=== PATIENT | female | born 2000 | race Caucasian/White ===

== ENCOUNTER 2023-08-17 20:23 | Observation (INO) | payer BC, SELFPAY ==
[2023-08-17 21:38] VITALS: BP 128/76; BMI 29.8
== END 2023-08-17 21:45 | disposition home or self-care (01) ==
LOC: LDRP 20:23
PROVIDERS: ADMITTING PHYSICIAN Obstetrics & Gynecology
DX: R10.9 Unspecified abdominal pain (principal); O99.343 Other mental disorders complicating pregnancy, third trimester; F32.A Depression, unspecified; Z3A.37 37 weeks gestation of pregnancy; F41.9 Anxiety disorder, unspecified; G43.909 Migraine, unspecified, not intractable, without status migrainosus; O99.333 Smoking (tobacco) complicating pregnancy, third trimester; F17.210 Nicotine dependence, cigarettes, uncomplicated
CPT/HCPCS: 36415; 86850; 86900; 86901; G0378

== ENCOUNTER 2023-08-26 14:41 | Observation (INO) | payer BC, SELFPAY ==
[2023-08-26 15:10] LABS: % Basophils 0.2 % (0-2); % Eosinophils 0.6 % (0-6); % Immature Granulocytes 1.4 % (0-0.5); % Lymphocytes 16.3 % (20.5-51.1); % Monocytes 8.5 % (1.7-9.3); Absolute Eosinophils 0.1 10^3/uL (0-0.7); Absolute Immature Granulocytes 0.1 10^3/uL (0-0.05); Absolute Lymphocytes 1.5 10^3/uL (1.2-3.4); Absolute Monocytes 0.8 10^3/uL (0.1-0.6); Absolute Neutrophils 6.6 10^3/uL (1.4-6.5); Hematocrit 33.8 % (37.0-47.0); Hemoglobin 11.2 g/dL (12.0-16.0); Mean Corp Hgb Conc. 33.1 g/dL (33.0-37.0); Mean Corpuscular Hgb 27.4 pg (27.0-31.0); Mean Corpuscular Volume 82.6 fL (81.0-99.0); Mean Platelet Volume 8.9 fL (7.4-10.4); Nucleated Red Blood Cells % 0 %; Platelet Count 314 10^3/uL (130-400); Red Blood Cell Count 4.09 10^6/uL (4.20-5.40); Red Cell Dist. Width 13.2 % (11.5-14.5)
[2023-08-26 15:21] VITALS: BP 117/87; BMI 30.8
[2023-08-26 15:21] LABS: INR 0.99; PT 13.1 Sec (11.4-14.6)
[2023-08-26 15:22] LABS: APTT 24.9 Sec (23.4-35.0)
[2023-08-26 15:23] LABS: Urine Albumin Negative (Neg - Trace); Urine Bilirubin Negative (Negative); Urine Character Slightly Cloudy (Clear); Urine Color Yellow; Urine Glucose Negative (Negative); Urine Ketone Negative (Negative); Urine Leukocyte 2+ (Negative); Urine Nitrite Negative (Negative); Urine Occult Blood Negative (Negative); Urine Specific Gravity 1.015 (<1.030); Urine Urobilinogen Negative (Neg - 1+)
[2023-08-26 15:26] LABS: ALT (SGPT) < 10 U/L (0-35); AST (SGOT) 21 U/L (14-36); Albumin 3.9 g/dl (3.5-5.0); Alkaline Phosphatase 136 U/L (38-126); Blood Urea Nitrogen 8 mg/dl (7-17); Calcium 9.5 mg/dl (8.4-10.2); Carbon Dioxide 20 mmol/L (22-30); Chloride 106 mmol/L (98-107); Glucose 118 mg/dl (70-99); Potassium 4.3 mmol/L (3.5-5.1); Sodium 131 mmol/L (135-145); Total Bilirubin 0.5 mg/dl (0.2-1.3); Uric Acid 4.1 mg/dl (2.5-6.2); eGFR > 60.00
[2023-08-26 15:34] LABS: Urine Squamous Cell >30 /LPF (Few)
[2023-08-26 15:36] LABS: Urine Bacteria Many (Negative); Urine Red Blood Cell None Seen /HPF (0-2)
[2023-08-26 15:59] LABS: Protein/creatinine Ratio 0.1; Urine Protein 10 mg/dl
== END 2023-08-26 16:38 | disposition home or self-care (01) ==
LOC: LDRP 14:41
PROVIDERS: Obstetrics & Gynecology; ADMITTING PHYSICIAN Obstetrics & Gynecology
DX: O14.03 Mild to moderate pre-eclampsia, third trimester (principal); Z3A.38 38 weeks gestation of pregnancy; O99.343 Other mental disorders complicating pregnancy, third trimester; F41.9 Anxiety disorder, unspecified; F32.A Depression, unspecified; R10.9 Unspecified abdominal pain
CPT/HCPCS: 80053; 81003; 81015; 82570; 84156; 84550; 85025; 85610; 85730; 86850; 86900; 86901; G0378

== ENCOUNTER 2023-08-31 08:15 | Inpatient (IN) | payer BC, SELFPAY ==
[2023-08-31 08:27] VITALS: BP 137/73; BMI 31.0
[2023-08-31 10:22] LABS: % Basophils 0.4 % (0-2); % Eosinophils 0.5 % (0-6); % Immature Granulocytes 1.6 % (0-0.5); % Lymphocytes 15.7 % (20.5-51.1); % Neutrophils 70.8 % (42.2-75.2); Absolute Immature Granulocytes 0.1 10^3/uL (0-0.05); Absolute Lymphocytes 1.3 10^3/uL (1.2-3.4); Absolute Monocytes 0.9 10^3/uL (0.1-0.6); Absolute Neutrophils 5.8 10^3/uL (1.4-6.5); Hematocrit 31.9 % (37.0-47.0); Hemoglobin 10.5 g/dL (12.0-16.0); Mean Corp Hgb Conc. 32.9 g/dL (33.0-37.0); Mean Corpuscular Hgb 26.9 pg (27.0-31.0); Mean Corpuscular Volume 81.8 fL (81.0-99.0); Mean Platelet Volume 9.4 fL (7.4-10.4); Nucleated Red Blood Cells % 0 %; Platelet Count 306 10^3/uL (130-400); Red Cell Dist. Width 13.6 % (11.5-14.5); White Blood Cell Count 8.2 10^3/uL (4.8-10.8)
[2023-08-31] MEDS: LR 1000 IV ×2 (11:58→19:34)
[2023-08-31] MEDS: PITOCIN 30 UNITS/NSS 500 ML IV ×2 (11:58→23:08)
[2023-08-31 12:15] LABS: Amphetamines Negative (Negative); Barbiturates Negative (Negative); Benzodiazepines Negative (Negative); Buprenorphine Negative (Negative); Cocaine Negative (Negative); Marijuana Negative (Negative); Methadone Negative (Negative); Methamphetamines Negative (Negative); Opiates Negative (Negative); Phencyclidine Negative (Negative); Tricyclic Antidepressants Negative (Negative)
[2023-08-31 12:57] LABS: ALT (SGPT) < 10 U/L (0-35); AST (SGOT) 22 U/L (14-36); Albumin 3.9 g/dl (3.5-5.0); Alkaline Phosphatase 137 U/L (38-126); Blood Urea Nitrogen 7 mg/dl (7-17); Calcium 9.4 mg/dl (8.4-10.2); Carbon Dioxide 19 mmol/L (22-30); Chloride 104 mmol/L (98-107); Estimated Creatinine Clearance > 125 ml/min; Glucose 73 mg/dl (70-99); Sodium 133 mmol/L (135-145); Total Bilirubin 0.7 mg/dl (0.2-1.3); Total Protein 6.9 g/dl (6.3-8.2); eGFR > 60.00
[2023-08-31] MEDS: MORPHINE SULFATE 2 MG IV ×2 (16:54→18:17)
[2023-08-31] MEDS: SUBLIMAZE 100 MCG EPIDURAL (19:01)
[2023-08-31] MEDS: FENTANYL/BUPIVACAINE 100 EPIDURAL (19:01)
[2023-08-31] MEDS: TYLENOL 1000 MG PO (21:03)
[2023-09-01] MEDS: NICODERM TRANSDERMAL 14 MG TRANSDERM (01:21)
[2023-09-01 06:23] LABS: Hematocrit 28.9 % (37.0-47.0); Hemoglobin 9.4 g/dL (12.0-16.0)
[2023-09-01] MEDS: PRENATAL PLUS 1 TABLET PO (07:31)
[2023-09-01] MEDS: TYLENOL 650 MG PO ×3 (07:31→20:50)
[2023-09-01] MEDS: MOTRIN 600 MG PO ×2 (07:32→14:52)
--- NOTE | 2023-09-01 14:30 | CM ---
CM received consult for assessing emotional and physical needs prior to discharge. CM spoke with mom's nurse, per nurse, mom's significant other was incarcerated recently, mother has a past history of substance use, tox screen negative. Nurse
reports mom is current in outpatient therapy. Nurse reports mom has been appropriate with baby, father has been to visit. CM met with mom and father in bedside, congratulated on of child. Mother reports this is her first child, is open to any
resources. Mom reports she has already set up WIC and is involved in [facility] in [place] which provides counseling, educational classes, ultrasounds and other care. Mom agreeable to referral to [facility], faxed to
[phone]. Mom inquiring about CHIP program, CM will gather information to provide to mom. Mom reports she is feeling sore but otherwise doing well. Mom reports she has everything they need at home for the baby. CM will continue to follow for
discharge planning needs.
Plan; home with baby when stable.
[2023-09-01 14:34] LABS: Syphilis/T. pallidum Ab Reflex Negative (Negative)
[2023-09-01] MEDS: SENOKOT-S 1 TABLET PO (20:49)
[2023-09-01] MEDS: MOTRIN 800 MG PO (20:50)
[2023-09-02] MEDS: TYLENOL 650 MG PO ×2 (05:40→11:59)
[2023-09-02] MEDS: MOTRIN 800 MG PO ×2 (05:40→14:41)
[2023-09-02] MEDS: NICODERM TRANSDERMAL 14 MG TRANSDERM (05:40)
[2023-09-02] MEDS: PRENATAL PLUS 1 TABLET PO (08:48)
[2023-09-02] MEDS: FEOSOL 325 MG PO (08:48)
--- NOTE | 2023-09-02 10:45 | CM ---
Spoke with Mom and SO at bedside
Mom reports she will have support at home - baby's dad and paternal grandmother
Given information on CHIP program. Instructed to call her insurance to see if infant can be added on to moms' insurance
== END 2023-09-02 16:01 | disposition home or self-care (01) | DRG 807 ==
LOC: LDRP 08:15
PROVIDERS: ADMITTING PHYSICIAN Obstetrics & Gynecology; FAMILY PHYSICIAN Obstetrics & Gynecology
PROC: 10E0XZZ Delivery of Products of Conception, External Approach (ICD-10-PCS; 2023-08-31)
PROC: 3E033VJ Introduction of Other Hormone into Peripheral Vein, Percutaneous Approach (ICD-10-PCS; 2023-08-31)
PROC: 10907ZC Drainage of Amniotic Fluid, Therapeutic from Products of Conception, Via Natural or Artificial Opening (ICD-10-PCS; 2023-08-31)
PROC: 0HQ9XZZ Repair Perineum Skin, External Approach (ICD-10-PCS; 2023-08-31)
DX: O70.0 First degree perineal laceration during delivery (principal); Z37.0 Single live birth; Z3A.39 39 weeks gestation of pregnancy; F19.11 Other psychoactive substance abuse, in remission; O99.344 Other mental disorders complicating childbirth; F32.A Depression, unspecified; F41.9 Anxiety disorder, unspecified; Y07.030 Male partner, current, perpetrator of maltreatment and neglect; Z91.410 Personal history of adult physical and sexual abuse; O99.334 Smoking (tobacco) complicating childbirth; F17.210 Nicotine dependence, cigarettes, uncomplicated
CPT/HCPCS: 80053; 80306; 85014; 85018; 85025; 86780; 86850; 86900; 86901; 99406

== ENCOUNTER 2024-06-30 12:31 | Emergency (ER) | payer BC, SELFPAY ==
[2024-06-30 12:33] VITALS: BP 125/79
[2024-06-30 12:42] VITALS: BMI 27.9
[2024-06-30 12:52] VITALS: BP 122/91
[2024-06-30 13:03] LABS: % Basophils 0.6 % (0-2); % Eosinophils 1.5 % (0-6); % Immature Granulocytes 0.2 % (0-0.5); % Lymphocytes 32.6 % (20.5-51.1); % Monocytes 8.1 % (1.7-9.3); Absolute Eosinophils 0.1 10^3/uL (0-0.7); Absolute Lymphocytes 1.8 10^3/uL (1.2-3.4); Absolute Monocytes 0.4 10^3/uL (0.1-0.6); Absolute Neutrophils 3.1 10^3/uL (1.4-6.5); Hematocrit 40.5 % (37.0-47.0); Hemoglobin 13.2 g/dL (12.0-16.0); Mean Corp Hgb Conc. 32.6 g/dL (33.0-37.0); Mean Corpuscular Hgb 27.9 pg (27.0-31.0); Mean Corpuscular Volume 85.6 fL (81.0-99.0); Mean Platelet Volume 8.3 fL (7.4-10.4); Nucleated Red Blood Cells % 0 %; Platelet Count 238 10^3/uL (130-400); Red Blood Cell Count 4.73 10^6/uL (4.20-5.40); Red Cell Dist. Width 14.8 % (11.5-14.5); White Blood Cell Count 5.4 10^3/uL (4.8-10.8)
[2024-06-30 13:12] LABS: HCG, Serum Qualitative Screen Negative
[2024-06-30 13:14] LABS: ALT (SGPT) < 10 U/L (0-35); AST (SGOT) 17 U/L (14-36); Albumin 4.5 g/dl (3.5-5.0); Alkaline Phosphatase 63 U/L (38-126); Blood Urea Nitrogen 18 mg/dl (7-17); Calcium 9.1 mg/dl (8.4-10.2); Carbon Dioxide 27 mmol/L (22-30); Chloride 105 mmol/L (98-107); Glucose 96 mg/dl (70-99); Lipase 147 U/L (23-300); Potassium 4.4 mmol/L (3.5-5.1); Sodium 137 mmol/L (135-145); Total Bilirubin 0.5 mg/dl (0.2-1.3); Total Protein 7.5 g/dl (6.3-8.2); eGFR > 60.00
--- NOTE | 2024-06-30 13:19 | ED.GENMED ---
History of Present Illness
General
Chief Complaint: Abdominal Pain
Source: patient
Exam Limitations: none
Time Seen by Provider: 06/30/24 13:14
Nursing documentation reviewed up to this point in time: agreed with
History of Present Illness
History of Present Illness:
Patient is a 24-year-old female who presents severe for evaluation of abdominal pain. Patient reports around 9:30 AM she felt sudden left lower quadrant pain that radiate to her back. Since then pain has improved but she feels pain all over her
abdomen now. She denies any nausea vomiting fever chills. She is a little constipated and has not moved her bowels in the past couple days. She is presently staying at a recovery house in [place].
She did have her last menstrual period last week which lasted for 3 days. She denies any urinary frequency urgency or dysuria. No prior history kidney stone. Denies any obvious hematuria.
She is 1 para 1 history of 1 last year.
Past History
Past History
ED Past Medical History: Other (overdose, Cellulitis)
ED Past Surgical History: Other (wisdom teeth)
Social History
Tobacco: Non-smoker
Alcohol: Former
Drug: Marijuana and Other (Methamphetamine)
Personal: Single
Living: alone
Review of Systems
Review of Systems
Allergies reviewed?: Yes
All Other Systems: ROS reviewed and negative except as documented in HPI and ROS
Constitutional: Reports no symptoms; Denies fever, fatigue or chills
Respiratory: Reports no symptoms
Cardiac: Reports no symptoms
ABD/GI: Reports abdominal pain; Denies nausea, vomiting or diarrhea
Musculoskeletal: Reports back pain (now resolved )
Skin: Reports no symptoms
Neurological: Reports no symptoms
Psychiatric: Reports no symptoms
Phy Exam
General Physical Exam
General Presentation: no apparent distress
General age: appears stated age
General Skin: warm and dry
General Habitus: normal
General Mental: alert
General Hydration: appears well hydrated
Gastrointestinal Exam
Gastrointestinal Exam: soft and other ( non specific abd tenderness )
Neurological Exam
Neurological Exam: alert and oriented x3
Musculoskeletal Exam
Musculoskeletal Exam: full ROM
Skin Exam
Skin Exam: normal color and warm/dry
Psychiatric Exam
Psychiatric Exam: normal mood/affect
Course
Orders/Labs/Results
Orders:
Orders
06/30/24 12:43
Test Result ONCE
06/30/24 12:45
Complete Blood Count/With Diff Urgent
Comprehensive Metabolic Panel Urgent
Lipase Urgent
, Serum Qualitative Screen [HCG, Serum Qualitative Screen] Urgent
06/30/24 13:29
US Pelvis W Transvag Combined Urgent
Reason For Exam: llq pain
06/30/24 13:32
0.9% Sodium Chloride 1000 ml [Nss] 1,000 ml IV BOLUS
06/30/24 13:33
CT Abd/Pel (IV only)-DH only Urgent
Comment:
Reason For Exam: abd pain
06/30/24 13:35
Ketorolac [Toradol] 15 mg IV NOW STA
06/30/24 13:39
UA Reflex to Culture [Urinalysis Reflex To Culture] Urgent
Date Specimen was Collected: 06/30/24
Time Specimen was Collected: 13:37
Abnormal Lab Results
06/30/24
12:45
MCHC 32.6 L g/dL
(33.0-37.0)
RDW 14.8 H %
(11.5-14.5)
BUN 18 H mg/dl
(7-17)
06/30/24 12:45
06/30/24 12:45
Vital Signs
Initial and Last Documented VS:
Initial Vital Signs
Temp Pulse Resp BP Pulse Ox
98.5 F 63 18 125/79 98
06/30/24 12:33 06/30/24 12:33 06/30/24 12:33 06/30/24 12:33 06/30/24 12:33
Last Documented Vital Signs
Temp Pulse Resp BP Pulse Ox
98.5 F 63 18 122/91 98
06/30/24 12:33 06/30/24 12:33 06/30/24 12:33 06/30/24 12:52 06/30/24 12:33
MDM/Problems Addressed
Differential Diagnosis Includes:
Not limited to less likely ovarian torsion ovarian cyst diverticulitis appendicitis
MDM/Problems Addressed:
Patient is document is a 24-year-old female who presented to the ER complaining of abdominal pain. Earlier this morning she had pain in left lower quadrant which radiated to her back. On my exam patient reported nonspecific abdominal tenderness
however she is very minimally tender on exam no guarding. She denies any associated fever chills nausea vomiting. She is in no acute distress.
Patient does mention feeling constipated for the past several days however no obvious obstruction. Will DC with MiraLAX and close outpatient follow-up with family doctor.
*Radiology
Radiology exam reviewed: radiology read reviewed
*Pulse Oximetry
Patient hypoxic: no
*Critical Care Note
Total Time (30-74mins, 75-104mins- exclusive of procedures): Not Applicable
ED Attending Note
-
Portions of this chart may have been created with voice recognition software.� Occasional wrong word or��sound alike� substitutions may have occurred due to the inherent limitations of voice recognition software.
Discharge Plan
Departure
Patient Disposition: Home (Routine Discharge)
Date of Disposition: 06/30/24
Time of Disposition: 15:43
Patient with high blood pressure during this ER visit?: Yes
Condition: Fair
Covid-19: Not Applicable
Discharge Problem:
Abdominal pain
Instructions: Constipation, Adult (DC), Abdominal Pain, BLOOD PRESSURE
Prescriptions:
No Action
prenat.vits,dennis,ulw-xzgl-melyr Tablet
1 tab PO DAILY
acetaminophen 325 mg Tablet
650 mg PO Q4HPRN PRN (Reason: mild pain) Qty: 0 0RF
nicotine 14 mg/24 hr Patch 24 Hour
14 mg transdermal DAILY Qty: 0 0RF
ibuprofen 800 mg Tablet
800 mg PO Q8HPRN PRN (Reason: moderate pain/cramps) Qty: 0 0RF
sennosides-docusate sodium [Stool Softener-Stimulant Laxat] 8.6-50 mg Tablet
1 tab PO DAILYPRN PRN (Reason: constipation) Qty: 0 0RF
ferrous sulfate [FeroSul] 325 mg (65 mg iron) Tablet
325 mg PO DAILY Qty: 0 0RF
Referrals:
NONE,* [Family Provider] -
Activity Restrictions/Additional Instructions:
As documented your CAT scan and ultrasounds were unremarkable. You may take MiraLAX for constipation be sure to increase your water intake. Be sure to increase your fiber intake, fresh fruits and vegetables. Avoid constipating foods such as
bananas.
Follow-up with family doctor in a running the next of days return if any worsening of symptoms.
Interventions
Interventions:
*Risk Screen - Suicide Last Done: 06/30/24 12:33
*General Assessment Last Done: 06/30/24 12:33
*Neglect/Abuse Screening Last Done: 06/30/24 12:33
ED- Fall Risk Assessment Last Done: 06/30/24 12:37
*ED COVID-19 Vaccine History Last Done: 06/30/24 12:33
*Nursing Disposition Last Done: 06/30/24 16:09
TF-Yketzi-Ezuihckpua Assessment Last Done: 06/30/24 12:37
Discharge Date and Time
Discharge Date/Time: 06/30/24 16:09
Print Language: AZERI
[2024-06-30] MEDS: NSS 1000 IV (13:34)
[2024-06-30] MEDS: TORADOL 15 MG IV (13:40)
[2024-06-30 14:28] LABS: Urine Albumin Negative (Neg - Trace); Urine Bilirubin Negative (Negative); Urine Character Clear (Clear); Urine Glucose Negative (Negative); Urine Ketone Negative (Negative); Urine Leukocyte Negative (Negative); Urine Nitrite Negative (Negative); Urine Occult Blood Negative (Negative); Urine Urobilinogen Negative (Neg - 1+)
[2024-06-30 14:30] LABS: Urine Color Straw
== END 2024-06-30 16:09 | disposition home or self-care (01) ==
LOC: EMR 12:31
PROVIDERS: Emergency Medicine; Nurse Practitioner; EMERGENCY PHYSICIAN Emergency Medicine
DX: R10.32 Left lower quadrant pain (principal); K59.00 Constipation, unspecified
CPT/HCPCS: 99284; 96374; 96361; 74177; 76830; 76856; 80053; 81003; 83690; 84703; 85025; Q9967